=== PATIENT | female | born 1940 | race Caucasian/White ===

== ENCOUNTER 2018-10-31 05:03 | Inpatient (IN) ==
--- NOTE | 2018-10-04 08:47 | PAT Medication Instructions ---
Medication Instructions Date of Service October 04, 2018 Home Medications aspirin [Aspir-81] 81 mg PO QPM atorvastatin [Lipitor] 40 mg PO PM ibuprofen 400 mg PO QID PRN lisinopril 20 mg PO HS metformin 500 mg PO TID omeprazole 20 mg PO QAM ASK your surgeon for instructions ibuprofen 400 mg PO QID PRN DO NOT take the morning of surgery metformin 500 mg PO TID Take morning of surgery With a small sip of water, OTHERWISE NOTHING TO EAT OR DRINK AFTER MIDNIGHT: omeprazole 20 mg PO QAM Take evening before surgery aspirin [Aspir-81] 81 mg PO QPM atorvastatin [Lipitor] 40 mg PO PM lisinopril 20 mg PO HS metformin 500 mg PO TID Other Notes If you have any questions please call us at [phone] or [phone] or [phone] or [phone]
--- NOTE | 2018-10-04 10:43 | Anesthesiology Consultation ---
Date of Service October 04, 2018 Assessment & Plan (1) Encounter for pre-operative examination: Plan: - Check BSG AM DOS Chart Review Chart Review: Acceptable Risk for Surgery and Patient seen in Pre Admission Testing Teaching & Discussion Pre-Anesthesia Teaching/Discussion Notes: Instructed NPO after midnight before surgery,except medications with 15 cc of water. Medication instructions provided according to the PAT guidelines. History Surgery Operation Date: 10/31/18 07:15 Proposed Procedures p Right Anterior Total Hip Arthroplasty - Bernard Vasquez DO Height/Weight Height: 5 ft 6.25 in Weight: 72.4 kg Allergies Allergy/AdvReac Type Severity Reaction Status Date / Time No Known Allergies Allergy Verified 09/28/18 08:41 Medications Home Medications Medication Instructions Recorded Confirmed Last Taken aspirin [Aspir-81] 81 mg PO QPM 09/28/18 09/28/18 Unknown atorvastatin [Lipitor] 40 mg PO PM 09/28/18 09/28/18 Unknown ibuprofen 400 mg PO QID PRN 09/28/18 09/28/18 Unknown lisinopril 20 mg PO HS 09/28/18 09/28/18 Unknown metformin 500 mg PO TID 09/28/18 09/28/18 Unknown omeprazole 20 mg PO QAM 09/28/18 09/28/18 Unknown Past Medical History Medical History Diabetes mellitus, type 2 NIDDM GERD (gastroesophageal reflux disease) Hyperlipidemia Hypertension Osteoarthritis Temporomandibular joint disorder NO LOCKING Past Family History Family History Sister Family history of diabetes mellitus Mother Family history of diabetes mellitus Daughter No problems noted. Brother Family hx of colon cancer Past Surgical History Surgical History History of open reduction and internal fixation (ORIF) procedure LEFT FOOT (2/2 NON-UNION REPAIR) History of repair of rotator cuff RIGHT History of tonsillectomy Past Anesthesia History No Hx of Anesthesia Complications and No Family Hx of Anesthesia Complications History of PONV No Motion Sickness Screening History of Motion Sickness: No Social History Smoking Status: Never smoker Do You Dip or Chew Tobacco: No Hx Alcohol Use: No Hx Substance Use: No Exercise / Class Metabolic Activity III < 4 Walking/Shop/Light housework Review of Systems Patient denies chest pain, shortness of breath, reflux, cough, wheezing, palpitations. Physical Exam Vital Signs VITALS BP 136/77 P 52 TEMP 98.3 SP02 98%RA RESP 16 Full neck and c-spine range of motion. Full TMJ range of motion. TMD 3 finger breaths Mallampati Score 2 Dentition: full dentures; edentulous Lungs: clear throughout to auscultation Cardiac: regular rate and rhythm, no murmurs noted Spine: scoliosis Carotid arteries: negative bruit Extremities: no edema Testing Electrocardiogram Date: 10/04/18 SB at 49bpm. LAD. iRBBB. LAFB. Chest X-Ray Date: 10/04/18 Findings: + NAD and + atherosclerosis of thoracic aorta Laboratory Results 10/04/18 11:27 10/04/18 11:27 Blood Type AB Positive 10/04/18 11:27 Antibody Screen NEGATIVE 10/04/18 11:27 PT 10.3 Seconds (9.0-12.0) 10/04/18 11:27 INR 1.0 (0.9-1.1) 10/04/18 11:27 APTT 25.9 Seconds (21.0-31.0) 10/04/18 11:27 Hemoglobin A1c 6.2 % (4.5-5.6) H 10/04/18 11:27 Urine Color Yellow 10/04/18 11:27 Urine Appearance Clear (Clear) 10/04/18 11:27 Urine pH 6.0 (4.5-7.5) 10/04/18 11:27 Ur Specific [place] 1.008 (1.000-1.030) 10/04/18 11:27 Urine Protein Negative (Negative) 10/04/18 11:27 Urine Glucose (UA) Negative (Negative) 10/04/18 11:27 Urine Ketones Negative (Negative) 10/04/18 11:27 Urine Nitrite Negative (Negative) 10/04/18 11:27 Ur Leukocyte Esterase Trace (Negative) H 10/04/18 11:27 Urine WBC (Auto) 1-5 /hpf (0-5) 10/04/18 11:27 Urine RBC (Auto) 0-4 /hpf (0-4) 10/04/18 11:27 U Hyaline Cast (Auto) 0 /lpf (0-5) 10/04/18 11:27 U Epithel Cells (Auto) 0-5 /lpf (0-5) 10/04/18 11:27 Urine Bacteria (Auto) Negative (Negative) 10/04/18 11:27 10/04/18 11:27 Urine Culture - Final Urine,Clean Catch No growth - less than 1,000 colonies/mL.
--- NOTE | 2018-10-04 12:03 | XRay Report ---
XR chest Pre-admission PA/Lat CLINICAL HISTORY: 77 years-old Female presenting with preoperative assessment. TECHNIQUE: PA and lateral views of the chest were obtained. COMPARISON: None. FINDINGS: Atherosclerosis of the aortic arch. Cardiac silhouette top normal in size. Lungs and pleural spaces c lear. Degenerative changes of the thoracic spine. Upper abdomen normal. IMPRESSION: 1. No acute cardiopulmonary disease. Electronically signed by: Darvin Tenorio M.D. 10/04/2018 12:01 PM
[2018-10-04 13:18] LABS: Basophils # (auto) 0.02 K/uL (0-0.2); Basophils % (auto) 0.4 %; Eosinophils # (auto) 0.12 K/uL (0-0.5); Eosinophils % (auto) 2.1 %; Hematocrit (blood only) 37.3 % (37-47); Hemoglobin 12.2 g/dL (12.0-16.0); Immature Granulocytes # (auto) 0.01 K/uL (0.00-0.02); Immature Granulocytes % (auto) 0.2 %; Lymphocytes # (auto) 1.77 K/uL (1.2-3.4); Lymphocytes % (auto) 31.4 %; Mean Corpuscular Hgb Conc 32.7 g/dL (32-36); Mean Corpuscular Volume 90.1 fL (80-100); Mean Platelet Volume 10.1 fL (7.4-10.4); Monocytes # (auto) 0.45 K/uL (0.11-0.59); Neutrophils # (auto) 3.27 K/uL (1.4-6.5); Neutrophils % (auto) 57.9 %; Platelet Count 270 K/uL (130-400); RDW Coefficient of Variation 13.1 % (11.5-14.5); RDW Standard Deviation 42.4 fL (36.4-46.3); Red Blood Count 4.14 M/uL (4.2-5.4); White Blood Count 5.64 K/uL (4.8-10.8)
[2018-10-04 13:24] LABS: Appearance Urine Clear (Clear); Bacteria Urine Automated Negative (Negative); Bilirubin Urine Negative (Negative); Cast Urine Automated 0 /lpf (0-5); Color Urine Yellow; Epithelial Cell Urine Auto 0-5 /lpf (0-5); Glucose Urine UA Negative (Negative); Ketones Urine Negative (Negative); Leukocyte Esterase Urine Trace (Negative); Nitrite Urine Negative (Negative); Partial Thromboplastin Time 25.9 Seconds (21.0-31.0); Protein Urine Negative (Negative); Prothrombin Time 10.3 Seconds (9.0-12.0); Specific Gravity Urine 1.008 (1.000-1.030); Urobilinogen Urine Negative (Negative)
[2018-10-04 13:32] LABS: Estimated Average Glucose 131 mg/dl
[2018-10-04 13:34] LABS: Albumin Level 3.5 gm/dl (3.4-5.0); BUN Creatinine Ratio 12.1 (10-20); Calcium 9.4 mg/dl (8.5-10.1); Creatinine Clr Calc Pharmacy 79.2 ml/min; Est GFR (African American) 101.2; Est GFR (Non-African American) 87.3; Potassium 4.8 mmol/L (3.5-5.1)
--- NOTE | 2018-10-30 10:51 | History & Physical Report ---
Date of Service October 30, 2018 Assessment & Plan (1) Degenerative joint disease (DJD) of hip: I have indicated the patient for right anterior total hip replacement. The risks, benefits and complications of surgery were explained to the patient which include but not limited to infection, acute blood loss, DVT/PE, injury to nerves, vessels, bone, soft tissue, arthrofibrosis, chronic pain, failure of the prosthesis, hip dislocation, leg length discrepancy, need for additional surgery, cardiac and pulmonary events and . The patient wished to proceed with surgery and informed consent was obtained at this time. We will plan for ASA BID post-operatively for DVT prophylaxis. Upon discharge the patient will be discharged home with home health services. Appropriate clearances by PCP were obtained. History of Present Illness Chief Complaint: Right hip pain and djd Primary Care Provider: Gabe Hamm The patient is a 77 year old female who presents with complaints of severe right hip pain and DJD. The patient has failed outpatient conservative treatments to this point which included nsaids, IA corticosteroid injection, HEP. The patient's pain and limited function have progressed to the point where they severely hinder their activities of daily living and they no longer tolerate exercise programs. They are requesting to proceed with total hip replacement surgery. Allergies Allergy/AdvReac Type Severity Reaction Status Date / Time No Known Allergies Allergy Verified 10/31/18 05:34 Home Medications Home Medications Medication Instructions Recorded Confirmed Type aspirin [Aspir-81] 81 mg PO QPM 09/28/18 10/31/18 History atorvastatin [Lipitor] 40 mg PO PM 09/28/18 10/31/18 History ibuprofen 400 mg PO QID PRN 09/28/18 10/31/18 History lisinopril 20 mg PO HS 09/28/18 10/31/18 History metformin 500 mg PO TID 09/28/18 10/31/18 History omeprazole 20 mg PO QAM 09/28/18 10/31/18 History Past Med/Surg History Medical History Diabetes mellitus, type 2 NIDDM GERD (gastroesophageal reflux disease) Hyperlipidemia Hypertension Osteoarthritis Temporomandibular joint disorder NO LOCKING Surgical History History of open reduction and internal fixation (ORIF) procedure LEFT FOOT (2/2 NON-UNION REPAIR) History of repair of rotator cuff RIGHT History of tonsillectomy Family History Sister Family history of diabetes mellitus Mother Family history of diabetes mellitus Daughter No problems noted. Brother Family hx of colon cancer Social History Current Living Situation: Spouse Other Information That Helps Us Care for You: No Feels Safe at Home: Yes Safety Concerns: Feels Safe At This Time Smoking Status: Never smoker Do You Dip or Chew Tobacco: No Hx Alcohol Use: No Hx Substance Use: No Beliefs That Will Affect Care: None Preferred Language: Welsh Communication Ability: Effective Converter Supervisor Required: No Review of Systems All systems reviewed & are unremarkable except as noted in HPI & below Physical Exam 2 Physical Exam: RLE NVSI +EHL/FHL/TA/GS SILT grossly, +2 DP pulse, compartments soft NT, painful limited ROM of the hip. Constitutional: WD/WN, vitals as above Eyes: PERRL, conjunctivae normal, anicteric sclerae ENMT: external ear and nose normal, oropharynx normal Neck: trachea midline, no thyromegaly Respiratory: normal respiratory effort, lungs clear to auscultation Cardiovascular: RRR, no murmur, no edema Gastrointestinal (Abdomen): normal bowel sounds, soft, nontender, no hepatosplenomegaly Musculoskeletal: no cyanosis or clubbing, extremities motor strength 5/5 Skin: no rashes, warm and dry Neurologic: patellar DTR's 2+ bilat, sensation intact Psychiatric: A+Ox3, euthymic affect Lymphatic: no cervical or axillary lymphadenopathy Results & Data Diagnostic Findings Multiple views of the hip demonstrates severe DJD with complete loss of the joint space. +osteophytes, +sclerosis, +subchondral cysts.
[2018-10-31] MEDS ORDERED: dexAMETHasone 4 MG TAB PO SCH (06:00)
[2018-10-31] MEDS ORDERED: CEFAZOLIN 1000MG 1,000 MG/7.5 ML SYR IV SCH (06:00)
[2018-10-31] MEDS ORDERED: FAMOTIDINE 20 MG TAB PO SCH (06:00)
[2018-10-31] MEDS ORDERED: ROPIVACAINE 0.5% HCL/PF 150 MG, BUPIVACAINE 0.5% MPF 30 ML, EPINEPHrine 30MG/30ML (OR U... INFIL SCH (06:00)
[2018-10-31] MEDS ORDERED: METOCLOPRAMIDE HCL 10 MG TABLET PO SCH (06:00)
[2018-10-31] MEDS ORDERED: CeleBREX 200 MG CAP PO SCH (06:00)
[2018-10-31] MEDS ORDERED: GABAPENTIN 300 MG PO SCH (06:00)
[2018-10-31] MEDS ORDERED: ACETAMINOPHEN 500 MG TAB PO SCH (06:00)
[2018-10-31] MEDS ORDERED: TRANEXAMIC ACID 1,000 MG **IV Pre-op IV SCH (06:00)
[2018-10-31] MEDS: LR 500ML BOLUS, THEN 15ML/HR IV SCH ×3 (06:03→11:34)
[2018-10-31] MEDS ORDERED: BUPIVACAINE 0.5 % 5 MG/1 ML PF 10ML VIAL ONE (06:26)
[2018-10-31] MEDS ORDERED: TRANEXAMIC ACID 1,000 MG **IV Intra-op IV SCH (06:30)
[2018-10-31] MEDS ORDERED: PROPOFOL IV EMULSION 10 MG/ML 20 ML VIAL IV ONE (06:59)
[2018-10-31] MEDS ORDERED: ePHEDrine sulfate 50 MG/ML SYR ONE (06:59)
[2018-10-31] MEDS ORDERED: MIDAZOLAM HCL 1 MG/ML 2ML VIAL ONE ×2 (06:59→07:59)
[2018-10-31] MEDS ORDERED: LIDOCAINE HCL 2% 2 ML VIAL/AMP(20MG/ML) INFIL ONE (06:59)
[2018-10-31] MEDS ORDERED: fentaNYL citrate 100 MCG/2 ML VIAL ONE ×2 (06:59→08:42)
[2018-10-31] MEDS ORDERED: POVIDONE-IODINE OP SOLN 30 ML BTL ONE (07:03)
[2018-10-31] MEDS ORDERED: ORTHO JOINT ANESTHETIC ONE (07:03)
[2018-10-31] MEDS ORDERED: BACITRACIN INJ 50,000 UNIT VIAL ONE (07:03)
--- NOTE | 2018-10-31 07:10 | History & Physical Bridge Note ---
Date of Service October 31, 2018 History & Physical Bridge Note I have examined the patient, reviewed the History & Physical and in the interval since the performance of the History & Physical I have noted the following changes of clinical significance: no changes noted
[2018-10-31] MEDS ORDERED: ATROPINE SULFATE 0.1 MG/ML 10ML SYR IV PRN (07:25)
[2018-10-31] MEDS ORDERED: PHENYLEPHRINE 100MCG/ML 5ML SYR IV PRN (07:25)
[2018-10-31] MEDS ORDERED: fentaNYL citrate 100 MCG/2 ML VIAL IV PRN (07:25)
[2018-10-31] MEDS ORDERED: ONDANSETRON INJ 2 MG/ML 2 ML VIAL IV PRN ×2 (07:25→11:02)
[2018-10-31] MEDS ORDERED: LABETALOL HCL IV 5 MG/ML 20ML IV PRN (07:25)
[2018-10-31] MEDS ORDERED: ePHEDrine sulfate 50 MG/ML AMP IV PRN (07:25)
--- NOTE | 2018-10-31 09:12 | Post Operative Brief Note ---
Immediate Post Op Note v1 Date of Surgery October 31, 2018 Pre & Post Diagnosis Operation Date: 10/31/18 07:15 Pre-Op Diagnosis: Right Hip Degenerative Joint Disease Post-Op Diagnosis: Right Hip Degenerative Joint Disease Procedure Operation Date: 10/31/18 07:15 Actual Procedures p Right Anterior Total Hip Arthroplasty--Uncemented(Right) - Bernard Vasquez DO Surgeon Bernard Vasquez DO Biomed Tech Keron Kaplan Estimated Blood Loss 75 Findings Consistent with Post-Op Diagnosis Fluids 51802 Specimens Femoral head Drains Hemovac Drain Anesthesia Type Spinal Complications none Disposition Disposition: Recovery Room Overlapping Procedure I was present for: the critical portions of procedure. I was immediately available: during the entire case. Back up surgeon: was not required during procedure.
--- NOTE | 2018-10-31 09:35 | Operative Report ---
Post Operative Report Pre & Post Diagnosis Operation Date: 10/31/18 07:15 Pre-Op Diagnosis: Right Hip Degenerative Joint Disease Post-Op Diagnosis: Right Hip Degenerative Joint Disease Procedure Operation Date: 10/31/18 07:15 Actual Procedures p Right Anterior Total Hip Arthroplasty--Uncemented(Right) - Bernard Vasquez DO Surgeon Bernard Vasquez DO Transplant Worker Keron Kaplan Estimated Blood Loss 75 Findings Consistent with Post-Op Diagnosis Fluids 1400 Specimens Femoral head Anesthesia Type Spinal Complications none Disposition Disposition: Recovery Room Indications The patient is a 77-year-old female who presents with severe progressive right hip DJD who has failed outpatient conservative treatments. I indicated the patient for a anterior total hip replacement and the risks and benefits were explained in detail which include but not limited to infection, bleeding, blood clot, damage to surrounding bone, nerves, vessels, soft tissue, hip dislocation , failure of the prosthesis, leg length discrepancy, need for additional surgery and . The patient agreed to proceed with replacement of the hip and informed consent was obtained. Appropriate clearances were obtained. Description of Procedure COMPONENTS USED: [employer] hip system: Acetabulum size 52, femur size 8 H offset, femoral head 36-3, liner 36 x 52, acetabular screw 25 mm. DESCRIPTION OF PROCEDURE: Following satisfactory spinal anesthesia, the patient was placed supine on the OR table. The left leg was placed in the well leg cutler and the right leg in the traction device. The right leg was prepared with ChloraPrep and draped sterilely. Following a surgical time-out, an anterior approach in the interval between the sartorius and tensor muscles was completed. Circumflex femoral vessels were identified, tied and ligated. The anterior capsular fat pad was removed and the capsulotomy was performed revealing the arthritic femoral neck and head. A femoral neck cut was made with reciprocating saw and the bone fragments removed. The acetabular self- retraining retractor was placed. Acetabular reaming was completed under fluoroscopic guidance, a 52 shell was impacted into an anatomic position and secured with a dome screw. Local anesthetic was placed and following irrigation , the polyethylene liner was placed. The femur was placed into position of external rotation, extension and adduction. Femoral canal was prepared up to the size 8 high offset. Trial reduction with a -3 neck length head showed good soft tissue tension, leg lengths restored, and good fit and fill of the proximal canal using fluoroscopic landmarks. The hip was dislocated. The trial component was removed. The final implant was placed. The hip was irrigated with sterile saline solution and reduced. A Betadine soak was performed. After 3 minutes, the hip was once more irrigated with copious sterile saline solution with bacitracin. Kari-incisional soft tissue was injected utilizing [place] [employer] which includes a combination of Ropivicaine 0.5% 150mg, Bupivicaine 0.5%/Epinephrine 1:200,000 30ml, Toradol 30mg, Dexamethasone 4mg, Ketamine 10mg, Clonidine 100mcg and NSS 30ml solution. The capsule was then closed with 1-0 Vicryl interrupted figure of eight sutures. The fascia was closed with a running suture of 0 V-Loc, the subcutaneous tissues with 2-0 Vicryl and the skin with a running subcuticular stitch of 3-0 V-Loc. Dermabond prineo and a dry dressing, prevena incisional vac were applied. The patient tolerated the procedure well and was transported to PACU in stable condition. Due to the complex nature of the procedure, the entire surgery was performed with the operational assistance of Keron Kaplan PA-C. The kindergarten instructional assistant, under direct supervision, was involved in the actual performance of all aspects of the surgical procedure including patient positioning, hemostasis, tissue retraction, instrument management and wound closure. I attest to the content of the Intraoperative Record and any orders documented therein. Any exceptions are noted below.
--- NOTE | 2018-10-31 10:38 | Anesthesiology Progress Note ---
Date of Service October 31, 2018 Anesthesia Post Procedure Vital Signs Vital Signs: Temp Pulse Pulse Resp BP Pulse Ox 10/31/18 10:32 53 L 16 171/62 H 100 10/31/18 10:20 55 L 16 122/47 L 100 10/31/18 10:10 36.6 C 53 L 16 156/68 H 100 10/31/18 10:00 53 L 16 159/61 H 100 10/31/18 09:50 65 16 159/65 H 100 10/31/18 09:44 35.7 C L 65 16 132/103 H 96 10/31/18 05:36 37.1 C 70 18 178/70 H 99 Pain Intensity Right Hip: Pain Intensity: 4 Notes Mental Status: alert / awake / arousable Patient Amnestic to Procedure: Yes Nausea / Vomiting: adequately controlled Pain: adequately controlled Airway Patency, RR, SpO2: stable & adequate BP & HR: stable & adequate Hydration State: stable & adequate Neuraxial Anesthesia: was administered and sensory block is resolving Anesthetic Complications: no major complications apparent and Pt Satisfied with anesthetic care
--- NOTE | 2018-10-31 10:46 | XRay Report ---
XR hip 1V RT w pelvis CLINICAL HISTORY: IN PACU - A/P PELVIS and LATERAL HIP - right COMPARISON: None. DISCUSSION: Anatomic alignment post total right hip arthroplasty. Good contact between prosthetic and the Bone. No evidence for acetabular protrusion. Expected postoperative soft tissue change. IMPRESSION: Anatomic alignment post total right hip arthroplasty. The above report was generated using voice recognition software. It may contain grammatical, syntax or spelling errors. Electronically signed by: Basilio Coon M.D. 10/31/2018 10:45 AM
[2018-10-31] MEDS ORDERED: MAGNESIUM HYDROXIDE SUSP 30 ML UDC PO PRN (11:02)
[2018-10-31] MEDS ORDERED: METOCLOPRAMIDE HCL INJ 5 MG/ML 2 ML VIAL IV PRN (11:02)
[2018-10-31] MEDS ORDERED: OXYCODONE HCL IR 5 MG TAB (IMMEDIATE RELEASE) PO PRN (11:02)
[2018-10-31] MEDS ORDERED: NALOXONE HCL 0.4 MG/1 ML VIAL/CARP IV PRN (11:02)
[2018-10-31] MEDS ORDERED: HYDROmorphone INJ 0.5 MG/0.5 ML SYR IV PRN (11:02)
[2018-10-31] MEDS ORDERED: BISACODYL 10 MG SUPP PR PRN (11:02)
--- NOTE | 2018-10-31 11:17 | Fluoroscopy Report ---
FL hip RT 1V CLINICAL HISTORY: 77 years-old Female presenting with RT ANTERIOR HIP. TECHNIQUE: 2 fluoroscopic image(s) recorded as part of an intraoperative procedure. COMPARISON: None. FINDINGS/IMPRESSION: Postsurgical changes of total right hip arthroplasty. No gross evidence of a periprosthetic fracture. No malalignment. Please see surgical report for further details. Fluoroscopy dosage (mGy): 7.35. Fluoroscopy time: 58.5 seconds. Number or time of fluoroscopic spot images: 0. Electronically signed by: Darvin Tenorio M.D. 10/31/2018 11:16 AM
[2018-10-31] MEDS ORDERED: PHARMACY GLYCEMIC MGMT CONSULT PRN (11:22)
[2018-10-31] MEDS ORDERED: GLUCOSE 10 TABS/TUBE PO PRN (11:36)
[2018-10-31] MEDS ORDERED: GLUCOSE 40% GEL 15 GM TUBE PO PRN (11:36)
[2018-10-31] MEDS ORDERED: DEXTROSE 50% 50 ML SYRINGE IV PRN (11:36)
[2018-10-31] MEDS ORDERED: GLUCAGON FOR INJ 1 MG VIAL IM PRN (11:36)
[2018-10-31] MEDS ORDERED: CARBOHYDRATES FOR HYPOGLYCEMIA PO PRN (11:36)
[2018-10-31] MEDS ORDERED: INSULIN GLARGINE SOLOSTAR 100 UNITS/ML 3 ML PEN SC ONE ×2 (11:45→21:00)
[2018-10-31] MEDS: SODIUM CHLORIDE 0.9% 1000ML 1,000 ML IV SCH ×2 (11:46→21:24)
--- NOTE | 2018-10-31 11:49 | Pharmacy Report ---
Glycemic Control Consultation - Date of Service October 31, 2018 - Scope Scope: Glycemic Pharmacist consulted by Dr Vasquez on 10/31/2018 for glycemic control and to write orders per [facility] inpatient glycemic control protocol - Objective Weight: 72.62 kg Accuchecks BSG (last 24hrs): 10/31/18 10/31/18 06:19 09:53 POC Glucose 93 129 H HbA1c: Hemoglobin A1c 6.2 % (4.5-5.6) H 10/04/18 11:27 - Recent Pertinent Medications Outpatient Anti-diabetic Regimen: * Metformin 500mg po TID * A1c = 6.5 % 10/04/2018 Risk Factors for Insulin Resistance: * Steroids: Dexamethasone 8mg po preop * IVF: NS @100 ml/hr * Recent Surgery: total hip replacement POD #0 * Diet: T2DM - Assessment & Plan Assessment & Plan: ASSESSMENT: * Pt appears to have good glycemic control based on HbA1c from 10/04/18 of 6.2% * Pt is maintained on oral antidiabetic agents as an outpatient * Will hold oral agents for admission and utilize SQ basal bolus insulin regimen which is the recommended regimen for inpatient glycemic control. * Will initiate weight based insulin dosing for insulin shyann patient and titrate based on BSG trends. * Will give one dose of basal insulin immediately post-op and dose sliding scale prandial coverage based on a stress level of 3 due to administration of preoperative steroids. * A sliding scale will be ordered for evening basal insulin dose. PLAN FOR INPATIENT GLYCEMIC CONTROL: * Holding outpatient oral diabetes medications * Basal insulin * Lantus 15 units SQ once * Lantus bedtime sliding scale for bsg less than 140 mg/dL give 0 units for bsg 140-180 mg/dL give 10 units for bsg greater than 180 mg/dL give 15 units * Bolus insulin * NovoLog per scale ACHS or Q6hrs while NPO * Goal Range: Low 110 mg/dL - High 140 mg/dL * Correction Factor: 20 mg/dL/unit * Nutritional / Prandial insulin per carb ratio of 1 unit per 7 grams CHO consumed * Midnight and 0400 bsg checks added for POD#0 night only * Please note that the plan above was derived based on current level of insulin resistance and hospital stress. These recommendations are appropriate for inpatient admission only. Plan of care upon discharge will need to be reassessed to avoid potential outpatient hypo/hyperglycemia. Thank you.
[2018-10-31] MEDS: KETOROLAC TROMETHAMINE 15 MG/ML VIAL IV SCH ×2 (12:10→17:47)
[2018-10-31] MEDS: INSULIN ASPART 100 UNITS/ML 3 ML PEN SC SCH ×3 (12:52→21:54)
[2018-10-31] MEDS: CEFAZOLIN 2000MG 2,000 MG/15 ML SYR IV SCH ×2 (14:16→22:03)
[2018-10-31] MEDS: ACETAMINOPHEN 500 MG TAB PO SCH ×2 (14:17→22:03)
--- NOTE | 2018-10-31 18:01 | Orthopedic Progress Note ---
Date of Service October 31, 2018 Assessment & Plan (1) Degenerative joint disease (DJD) of hip: Status post right anterior total hip arthroplasty -ancef x 24 -DVT ppx: ASA BID -WBAT RLE -PT/OT -am labs -PO XR right hip demonstrates a well aligned well fixed orthopedic prosthesis without evidence of loosening, fracture, subsidence or dislocation. -DC planning Subjective Post Operative Progress Note Patient seen sitting up in bed, comfortable, denies complaints, pain well controlled, no acute issues. Patient did have some discomfort with hip flexion when getting out of bed otherwise doing well. Physical Exam 2 Vital Signs (Past 24 Hours): Last Vital Signs Temp 36.6 C 10/31/18 15:42 Pulse 44 L 10/31/18 15:42 Resp 18 10/31/18 15:42 BP 116/67 10/31/18 15:42 Pulse Ox 98 10/31/18 15:42 Physical Exam: RLE NVSI +EHL/FHL/TA/GS SILT grossly, +2 DP pulse, compartments soft NT, dressing cdi. Constitutional: WD/WN, vitals as above Eyes: PERRL, conjunctivae normal, anicteric sclerae ENMT: external ear and nose normal, oropharynx normal Neck: trachea midline, no thyromegaly Respiratory: normal respiratory effort, lungs clear to auscultation Cardiovascular: RRR, no murmur, no edema Gastrointestinal (Abdomen): normal bowel sounds, soft, nontender, no hepatosplenomegaly Musculoskeletal: no cyanosis or clubbing, extremities motor strength 5/5 Skin: no rashes, warm and dry Neurologic: patellar DTR's 2+ bilat, sensation intact Psychiatric: A+Ox3, euthymic affect Lymphatic: no cervical or axillary lymphadenopathy
[2018-10-31] MEDS ORDERED: LISINOPRIL 20 MG TAB PO SCH (21:00)
[2018-10-31] MEDS ORDERED: ATORVASTATIN 40 MG TAB PO SCH (21:00)
[2018-10-31] MEDS ORDERED: SENNA 8.6 MG TAB PO SCH (21:00)
[2018-10-31] MEDS: DOCUSATE SODIUM 100 MG CAP PO SCH (21:53)
[2018-11-01] MEDS: KETOROLAC TROMETHAMINE 15 MG/ML VIAL IV SCH ×2 (00:16→05:58)
[2018-11-01] MEDS: INSULIN ASPART 100 UNITS/ML 3 ML PEN SC SCH ×4 (00:19→13:44)
[2018-11-01] MEDS: ACETAMINOPHEN 500 MG TAB PO SCH ×2 (05:57→13:44)
[2018-11-01 07:03] LABS: Basophils # (auto) 0.01 K/uL (0-0.2); Basophils % (auto) 0.1 %; Eosinophils # (auto) 0.01 K/uL (0-0.5); Eosinophils % (auto) 0.1 %; Hematocrit (blood only) 28.7 % (37-47); Hemoglobin 9.4 g/dL (12.0-16.0); Immature Granulocytes # (auto) 0.02 K/uL (0.00-0.02); Immature Granulocytes % (auto) 0.2 %; Lymphocytes # (auto) 1.86 K/uL (1.2-3.4); Lymphocytes % (auto) 15.4 %; Mean Corpuscular Hgb Conc 32.8 g/dL (32-36); Mean Corpuscular Volume 89.4 fL (80-100); Mean Platelet Volume 9.8 fL (7.4-10.4); Monocytes # (auto) 1.07 K/uL (0.11-0.59); Monocytes % (auto) 8.8 %; Neutrophils # (auto) 9.13 K/uL (1.4-6.5); Neutrophils % (auto) 75.4 %; Platelet Count 202 K/uL (130-400); RDW Coefficient of Variation 13.1 % (11.5-14.5); RDW Standard Deviation 42.4 fL (36.4-46.3); Red Blood Count 3.21 M/uL (4.2-5.4)
[2018-11-01 07:37] LABS: BUN Creatinine Ratio 17.9 (10-20); Calcium 8.6 mg/dl (8.5-10.1); Creatinine Clr Calc Pharmacy 86.2 ml/min; Est GFR (Non-African American) 89.8
[2018-11-01] MEDS: DOCUSATE SODIUM 100 MG CAP PO SCH (08:31)
[2018-11-01] MEDS ORDERED: MULTIVITAMIN TAB PO SCH (09:00)
[2018-11-01] MEDS ORDERED: ASPIRIN 325 MG ECTAB PO SCH (09:00)
[2018-11-01] MEDS ORDERED: PANTOprazole 40 MG TAB PO SCH (09:00)
--- NOTE | 2018-11-01 09:00 | Orthopedic Progress Note ---
Date of Service November 01, 2018 Assessment & Plan (1) Degenerative joint disease (DJD) of hip: Status post right anterior total hip arthroplasty POD#1 -ancef x 24 -DVT ppx: ASA BID -WBAT RLE -PT/OT -am labs hgb 9.4 -PO XR right hip demonstrates a well aligned well fixed orthopedic prosthesis without evidence of loosening, fracture, subsidence or dislocation. -DC planning - home with HH Subjective Post Operative Progress Note Patient seen sitting up in bed, comfortable, denies complaints, pain well controlled, no acute issues. Patient did have some discomfort/weakness with hip flexion which has improved overnight. Physical Exam 2 Vital Signs (Past 24 Hours): Last Vital Signs Temp 36.5 C 11/01/18 06:57 Pulse 42 L 11/01/18 06:57 Resp 15 11/01/18 06:57 BP 128/67 11/01/18 06:57 Pulse Ox 96 11/01/18 06:57 Physical Exam: RLE NVSI +EHL/FHL/TA/GS SILT grossly, +2 DP pulse, compartments soft NT, dressing cdi. Constitutional: WD/WN, vitals as above
[2018-11-01] MEDS ORDERED: CeleBREX 200 MG CAP PO SCH (21:00)
--- NOTE | 2018-11-02 23:16 | Discharge Summary ---
Date of Service November 02, 2018 Admission HPI Per Admitting Provider The patient is a 77 year old female who presents with complaints of severe right hip pain and DJD. The patient has failed outpatient conservative treatments to this point which included NSAIDS, IA corticosteroid injection, HEP. The patient's pain and limited function have progressed to the point where they severely hinder their activities of daily living and they no longer tolerate exercise programs. They are requesting to proceed with total hip replacement surgery. Principal Diagnosis Right anterior total hip replacement Discharge Exam RLE NVSI +EHL/FHL/TA/GS SILT grossly, +2 DP pulse, compartments soft NT, dressing cdi. Constitutional WD/WN, vitals as above Eyes PERRL, conjunctivae normal, anicteric sclerae ENMT external ear and nose normal, oropharynx normal Neck trachea midline, no thyromegaly Respiratory normal respiratory effort, lungs clear to auscultation Cardiovascular RRR, no murmur, no edema Gastrointestinal (Abdomen) normal bowel sounds, soft, nontender, no hepatosplenomegaly Musculoskeletal no cyanosis or clubbing, extremities motor strength 5/5 Skin no rashes, warm and dry Neurologic patellar DTR's 2+ bilat, sensation intact Psychiatric A+Ox3, euthymic affect Lymphatic no cervical or axillary lymphadenopathy Discharge Data Allergies Allergy/AdvReac Type Severity Reaction Status Date / Time No Known Allergies Allergy Verified 10/31/18 05:34 Consultations 11/01/18 08:00 Consult Case Management - Discharge Planning Routine Procedures Performed Operation Date: 10/31/18 07:15 Actual Procedures p Right Anterior Total Hip Arthroplasty--Uncemented(Right) - Bernard Vasquez DO Ordered Studies 10/31/18 07:15 FL fluoroscopy <1hr Routine FL hip RT 1V Routine Hospital Course (1) Degenerative joint disease (DJD) of hip: The patient is a 78 -year-old female who presents with long standing history of severe right hip DJD and failed outpatient conservative treatments including NSAIDs, bracing, injections and home walking/exercise program. The patient's symptoms have progressed to the point where it has been difficult to perform even normal activities of daily living. I indicated the patient for a right anterior total total arthroplasty, the risks , benefits and complications of the procedure include but not limited to infection, bleeding, damage to bone, nerves, vessels, surrounding soft tissue, may develop blood clots, loss of function, leg length discrepancy, dislocation, failure of the components, loosening of the components, the need for additional surgery and . The patient wished to proceed with surgery at this time and informed consent was obtained. Hospital Course: On 10/31/18 the patient was taken to the operating room, adequate anesthesia administered and underwent a right anterior total hip arthroplasty. The patient tolerated the procedure well and was taken to the PACU in stable condition. Post-operatively the patient was started on a DVT ppx medication and given appropriate IV antibiotics. Consults were placed to physical therapy , occupational therapy and case management. On POD#1, the patient did well overnight and their pain was well controlled. Labs were drawn and the Hgb was 9.4. The patient progressed well with PT. Dressings were clean, dry and intact. The patients hospital stay was relatively uneventful and they were deemed stable by the orthopedic team and consultants to be discharged home with HH on . Discharge Instructions: Upon discharge the patient may weight bear as tolerates through their operative extremity. They were instructed to keep the incision clean and dry at all times. The patient may shower but should not submerge the incision, avoid bathing, pools and hot tubes. The patient was given a script for pain medication and should take as instructed. The patient was given a script for DVT ppx ASA 325mg BID and should take as directed. The patient was instructed to not drive or travel for long distances until cleared to do so. If the patient develops any symptoms of fevers, chills, nausea, vomiting, increased redness, swelling, pain or drainage from the surgical site, they should notify the office and/or proceed to the nearest emergency room. The patient should follow up in 10-14 days after surgery for their routine post-operative follow- up appointment and should call the office to confirm the date and time. Status post right anterior total hip arthroplasty POD#1 -ancef x 24 -DVT ppx: ASA BID -WBAT RLE -PT/OT -am labs hgb 9.4 -PO XR right hip demonstrates a well aligned well fixed orthopedic prosthesis without evidence of loosening, fracture, subsidence or dislocation. -DC planning - home with Total Time Total Time Spent Total Time Spent (In Minutes): >60 minutes Discharge Plan Discharge Items Patient Disposition: Home - Home Health Services Reason For Visit: Right Hip Osteoarthritis Discharge Diagnosis: Right anterior total hip replacement Condition: Good Discharge Goals: Decrease discomfort, Improve disease control, Improve function , Increase independence, Specific goals and Therapeutic intervention Activity: Per 'Additional Instructions' section Lifting: Wait until after follow-up appointment Bathing Comment: No bathing, pools or hot tubs Sexual Activity: Wait until after follow-up appointment Exercise/Sports: Wait until after follow-up appointment Driving/Machine Use Comment: No driving till cleared by your surgeon Weightbearing: Right weightbearing Non-emergency contact: Primary Care Provider and Surgeon Call non-emergency contact if: you have any medication questions, your symptoms worsen, your pain is not controlled, your pain is worsening, your pain is unusual for you, your pain is concerning for you, you have a fever, your temperature is above 101, your wound has increased redness, your wound has increased drainage and your wound pain has increased Follow-up/Referrals: Gabe Hamm [Primary Care Provider] - Diet: Carb Consistent or DM2 Addtl Provider Instructions: ACTIVITY RECOMMENDATIONS: SELF CARE INSTRUCTIONS AFTER TOTAL HIP REPLACEMENT : Direct Anterior Approach Until the incision and soft tissues around your hip have healed, there is a possibility that the hip prosthesis could dislocate. A. Hip flexion ( Up & Down out of chair or steps ) may be difficult. This is normal. B. Numbness in front of the thigh is also normal for a few weeks. C. Use hand rails when walking on stairs. D. Wear low heeled shoes with non-slip soles. E. Be sure that your floors are free of things that could trip you - throw rugs , electrical cords, small objects. Avoid wet and waxed floors, especially with crutches and canes. F. Try to walk several times a day with rest periods between. G. Continue with all the exercises taught to you in the hospital. Again, make walking a part of your daily routine. SPECIAL CARE INSTRUCTIONS: VERY IMPORTANT TO READ AND REVIEW A. You may still be at risk for phlebitis and blood clots. 1. Wear surgical stockings (DAMASO hose) for 2 weeks after surgery to improve circulation and reduce swelling. 2. Take Aspirin 325mg twice daily for 4 weeks or as directed by your doctor. This is your blood thinner. 3. High risk patients may be prescribed a stronger blood thinner if necessary. 4. If you are on Coumadin normally, your family doctor/ferry pilot should monitor your blood work. Expect a phone call the day of or the day after bloodwork is drawn to adjust your dosage. B. You must take antibiotics before having dental work, bladder, bowel and other surgery. Your doctor will provide you with a permanent card to carry describing precautions. C. Call [facility] if you have a fever, redness or swelling around the incision, cloudy drainage from incision, or sudden increase in pain in your hip, not relieved by your regular pain medication. D. Please call the office at if you have any concerns or questions about your operation or recovery. * YOU MAY SHOWER, NO TUB BATHS UNTIL CLEARED BY YOUR DOCTOR. - Keep an extra close eye on the top portion of your incision. Be sure to keep clean & dry. * WEAR DAMASO HOSE 20 HOURS PER DAY FOR 2 WEEKS. * YOU MAY PROGRESS FROM A WALKER, TO A CANE, TO INDEPENDENT AT YOUR OWN PACE. * MOST PATIENTS WILL HAVE HOME NURSING FOR THERAPY. IF YOU DECIDE TO DO OUTPATIENT PHYSICAL THERAPY, PLEASE SCHEDULE THIS 3 TIMES PER WEEK. * DERMABOND Prineo- This is a mesh tape dressing that is covered with glue. It should remain in place until the incision is properly healed, usually 10-14 days. This dressing is designed to naturally slough off. You may trim the excess mesh tape as it peels off. Incision may be briefly wet in a shower. Dry immediately by blotting with a clean, dry towel. Do not bath or swim until instructed by your doctor. Do not scratch, rub, or pick at the dressing. Do not apply any topical ointments or lotions until dressing is completely removed and/or instructed by your doctor. There may be a small piece of suture material at one end of your incision. Do not pull or trim this. If it is bothersome or catching on clothing, you may cover it with a band-aid. *Prevena incisional vac is a special dressing covering your incision. This dressing provides a sterile dry environment while you are healing. The dressing is to be left in place for 7 days post-operatively. Your home nurse or surgeon will remove. If you develop any redness or blisters or have any questions notify your surgeon immediately. FOLLOW UP VISIT: If appointment is not already scheduled: Please call [facility] to make a follow-up appointment for 2 weeks after your surgery at . Prescriptions: New acetaminophen [Pain Reliever] 500 mg Tablet 1,000 mg PO Q8 PRN (Reason: pain) Qty: 90 RF: 0 aspirin 325 mg Tablet,Delayed Release (Dr/Ec) 325 mg PO BID 28 Days Qty: 56 RF: 0 celecoxib [Celebrex] 200 mg Capsule 200 mg PO BID PRN (Reason: pain) 14 Days Qty: 28 RF: 0 oxycodone 5 mg Tablet 5 mg PO Q4H MDD 6 tabs PRN (Reason: pain) Qty: 30 RF: 0 sennosides [Senokot] 8.6 mg Tablet 17.2 mg PO HS PRN (Reason: constipation) Qty: 28 RF: 0 Continue atorvastatin [Lipitor] 40 mg Tablet 40 mg PO PM RF: 0 metformin 500 mg Tablet 500 mg PO TID RF: 0 lisinopril 20 mg Tablet 20 mg PO HS RF: 0 omeprazole 20 mg Capsule,Delayed Release(Dr/Ec) 20 mg PO QAM RF: 0 Discontinued ibuprofen 200 mg Capsule 400 mg PO QID PRN (Reason: Pain) RF: 0 aspirin [Aspir-81] 81 mg Tablet,Delayed Release (Dr/Ec) 81 mg PO QPM RF: 0 Stand-Alone Forms: [facility], Opioid Pain Management Discharge Orders: Discharge Order (Routine); Ordered 11/01/18 Ordered By: Bernard Vasquez Admission Data Admit Date/Time: 10/31/18 10:31 Attending Provider: Bernard Vasquez Admit Provider: Bernard Vasquez Primary Care Provider: Gabe Hamm Service: Surgical Services Other Interventions: Discharge Summary Assessment (RN) Last Done: 11/01/18 10:18 DC Date/Time DO NOT enter until pt leaves facility: 11/01/18 14:23
== END 2018-11-01 14:23 | disposition home health service (06) | DRG 470 ==
LOC: ASU 05:03 → 3E 10:31